=== PATIENT | male | born 1985 | race American Indian/Alaskan Native ===

== ENCOUNTER 2018-07-18 11:53 | Emergency (ER) | payer OTHER, BC ==
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
[2018-07-18] MEDS ORDERED: IBUPROFEN PO ONE (13:20)
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
[2018-07-18] MEDS ORDERED: ROBAXIN PO ONE (14:00)
[2018-07-18 14:23] VITALS: BP 141/90
== END 2018-07-18 14:23 | disposition home or self-care (01) ==
LOC: ED 11:53
DX: S93.401A Sprain of unspecified ligament of right ankle, initial encounter (principal); M94.0 Chondrocostal junction syndrome [Tietze]; V49.49XA Driver injured in collision with other motor vehicles in traffic accident, initial encounter; Y93.89 Activity, other specified; Y92.410 Unspecified street and highway as the place of occurrence of the external cause; Y99.8 Other external cause status
CPT/HCPCS: 71046